=== PATIENT | male | born 2005 | race Caucasian/White ===

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

== ENCOUNTER 2024-08-22 17:58 | Emergency (ER) | payer OTHER, SELFPAY ==
--- NOTE | ~2024-08-22 | XR_ITS ---
CLINICAL HISTORY: fall, pain Four views of the left knee. Findings: There is a 7 mm osteochondral lesion of the medial femoral condyle with a possible unstable fragment. No acute fracture is identified. No definite joint effusion. Impression: No acute fracture. Osteochondral lesion medial femoral condyle with a possible unstable fragment. This document has been electronically signed by: Perry Davis MD on 08/22/2024 19:11:03
[2024-08-22 18:03] VITALS: BP 150/90; PULSE 64; O2SAT 99
[2024-08-22 18:08] VITALS: BP 134/68; PULSE 74; RESP 16; TEMP 36.6; O2SAT 96; BMI 32.8
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
--- NOTE | 2024-08-22 18:34 | ED.LOWEXIN ---
HPI - Extremity Injury (Lower) General Chief Complaint: Extremity Injury, Lower Stated Complaint: FALL, R KNEE INJURY PER EMS Time Seen by Provider: 08/22/24 18:04 Source: patient and EMS Mode of arrival: EMS Limitations: no limitations History of Present Illness ED Provider: Jacklyn Beebe NP HPI Narrative: Patient is a 18-year-old male who presents emergency department for evaluation of right knee pain. He reports that he was walking today when suddenly his right knee gave way resulting in subsequent pain primarily to the posterior aspect of the knee. He does state that about 3-4 weeks ago he was playing basketball and had fallen onto the knee resulting in a sprain, he wore a knee brace for approximately 1 week in his symptoms resolved. He has had an occasional pain here and there since then. He denies any numbness tingling or cold sensation to the extremity. He denies any recent lower extremity redness or swelling. No history of VTE/ malignancy. There was no head strike associated with this fall today Related Data Allergies Allergy/AdvReac Type Severity Reaction Status Date / Time No Known Allergies Allergy Verified 08/22/24 18:08 Review of Systems Review of Systems: Yes all other systems are reviewed and are negative PMFSH Past Medical History Attestation statement: The following information was validated with the patient. Source: old records reviewed Medical History No known health problems Social History Social History Advance Directives: No Advance Directives Information Provided: Yes Do you have a plan to hurt others: No Plan Physical Exam Vital Signs: Vital Signs: Last Vital Signs Temp 97.9 F 08/22/24 18:08 Pulse 74 08/22/24 18:08 Resp 16 08/22/24 18:08 BP 134/68 08/22/24 18:08 Pulse Ox 96 08/22/24 18:08 O2 Del Method Room Air 08/22/24 18:08 BMI result Body Mass Index 32.8 Appearance: Alert.?Oriented to person, place and time. No acute distress.?Normal affect. CVS: Heart sounds normal. Normal heart rate and rhythm.? Pulses normal.?? Respiratory: No respiratory distress.? Lung sounds clear to auscultation bilaterally?? Skin: Skin warm and dry.? Normal skin color.? Extremities: No lower extremity edema.? No calf ttp. 2+ DP/PT pulse. No laxity on examination. No obvious deformity. No effusion. Anterior and posterior drawer test negative. ?Full range of motion to right hip and ankle Neuro: Moves all extremities spontaneously. Sensation intact bilaterally. Ambulates with antalgic gait. Medications Administered Discontinued Medications Generic Name Dose Route Start Last Admin Trade Name Alexis PRN Reason Stop Dose Admin Ibuprofen 600 mg 08/22/24 18:33 08/22/24 18:43 Ibuprofen 600 Mg Tablet PO 08/22/24 18:34 600 mg ONCE ONE Administration Medical Decision Making Medical Decision Making [facility] Narrative: Patient is a 18-year-old male who presents emergency department for evaluation of traumatic right knee pain in the setting of a knee sprain approximately 3-4 weeks ago as per HPI. Overall well-appearing. Nontoxic. Extremities neurovascularly intact distally. No obvious deformity. Differential includes sprain, strain, fracture, dislocation. No clinical evidence or high-risk past medical history that would suggest VTE, Wells score low risk, and again this was traumatic in nature. XR was obtained revealing no evidence of fracture dislocation there is however an osteochondral defect of the medial femoral condyle. I reviewed this with patient. Discussed outpatient follow-up with orthopedics, and reviewed worrisome signs and symptoms that would warrant re-evaluation emergency department. Provided with less of bandage for compression as he has a knee brace at home and did not want an additional one, additionally provided with crutches and educated on usage. All questions answered. Differential Diagnosis Differential Diagnoses: The differential diagnosis associated with the presentation includes (See narrative above) Independent Interpretation I performed an independent interpretation of an: Plain X-Ray (See narrative above) Radiology Impression Discussion of test interpretation with radiology: I have reviewed the radiologist's reading. Radiologist Impression: Four views of the left knee. Findings: There is a 7 mm osteochondral lesion of the medial femoral condyle with a possible unstable fragment. No acute fracture is identified. No definite joint effusion. Impression: No acute fracture. Osteochondral lesion medial femoral condyle with a possible unstable fragment. External Record Review External record reviewed: Outpatient record Prescription Management I considered prescription management with: Pain Medication (Acetaminophen/ibuprofen) Discharge Plan Discharge Clinical Impression: Knee sprain, Osteochondral lesion Patient Disposition: Home, Self-Care Instructions: Knee Sprain (ED), Crutch Instructions (ED), How to Use an Elastic Bandage (ED) Additional Instructions: Be sure to rest over the next few days. Elevate your leg above the level of your chest. Apply ice for 10-15 minutes 4-6 times daily. You can take ibuprofen 200 mg, 3 tablets (600mg) every 6-8 hours as needed for pain, in addition to Tylenol 500 mg, 2 tablets (1,000mg) every 4-6 hours as needed for pain, but not to exceed 3 doses daily (3,000mg).? use elastic bandage for compression in addition to the brace that you have at home and crutches as instructed. As discussed, there is an osteochondral defect on your femoral bone within the knee joint. It is recommended that you follow-up with orthopedics for further evaluation and treatment. contact their office to schedule a follow-up appointment. Referrals: [facility] Orthopedic Surgeons [Provider Group] Print Language: Romansh
[2024-08-22] MEDS: Ibuprofen 600 MG TABLET PO (18:43)
[2024-08-22 20:39] VITALS: BP 112/67; PULSE 65; RESP 20; TEMP 36.6; O2SAT 100
== END 2024-08-22 20:39 | disposition home or self-care (01) ==
PROVIDERS: Emergency Provider Emergency Medicine
DX: S83.91XA Sprain of unspecified site of right knee, initial encounter (principal); M93.861 Other specified osteochondropathies, right lower leg; M25.561 Pain in right knee; X50.1XXA Overexertion from prolonged static or awkward postures, initial encounter; Y93.01 Activity, walking, marching and hiking; Y92.9 Unspecified place or not applicable; Y99.8 Other external cause status
CPT/HCPCS: 73564; 99283; 99284

== ENCOUNTER → 2024-08-22 18:33 | Outpatient (BNV) | payer OTHER, SELFPAY | PROVIDERS: Emergency Provider Emergency Medicine; Visit Provider Radiology Diagnostic Radiology | DX: M25.562 Pain in left knee (principal) | CPT/HCPCS: 73564 ==

== ENCOUNTER 2024-09-14 11:20 | Outpatient (AMB) | payer OTHER, SELFPAY ==
--- NOTE | 2024-09-14 11:25 | A.OFFVIS_ITS ---
Vital Signs 09/14/24 11:37 Height 5 ft 2 in Weight 179 lb BMI 32.7 Intake Visit Reasons: Right knee pain and giving way Intake Note: Frank is a 18 year old male who presents with complaints of progressively worsening right knee pain and giving way. The patient states that he 1st injured his knee while playing basketball several months ago. Since that time his symptoms have gotten worse in spite of continued non operative treatments. He states that his right knee will give out several times per day. He has been limping because of his pain. He has tried Tylenol and anti-inflammatory medicines which gave him minimal relief. He has also tried wearing a knee brace which gives him no relief. The patient states that he has fallen on several occasions because of his right knee instability. Allergies No Known Allergies Allergy (Verified 09/14/24 11:26) Medication List - Last Reconciled 09/14/24 by Jaziel Henry MD dexmethylphenidate ER 25 mg PO QAM [facility] Medical History (Updated 09/14/24 @ 12:03 by Jaziel Henry MD) No known health problems Surgical History (Updated 09/14/24 @ 11:28 by SAURABH Sultana) Hx of neck surgery History of back surgery Social History (Updated 09/14/24 @ 11:27 by SAURABH Sultana) Patient Tobacco Use Status: Never used Tobacco Current occupational status: unemployed Physical Exam Vital Signs: BMI result Body Mass Index 32.7 Const Other: Well-nourished well-developed very friendly male awake alert and oriented x3 in no acute distress Extrem Other: Right knee examination shows a minimal effusion, no crepitus with range of motion, tenderness along his medial joint line, positive Berta's test, no instability Results Reviewed Results Reviewed: X-rays of the patient's right knee show minimal degenerative changes, possible osteochondral defect involving the medial femoral condyle Assessment & Plan Assessment & Plan (1) Tear of medial meniscus of right knee: Code(s): S83.241A - Other tear of medial meniscus, current injury, right knee, initial encounter Category: Medical Plan Frank is a 18-year-old male who presents with right knee pain and mechanical symptoms due to possible medial meniscus tearing as well as possible osteochondral defect of his medial femoral condyle. Thus, I will send the patient for an MRI of his right knee for further evaluation. I will see him back once the MRI is completed to discuss the findings and treatment options. He will continue with his activity modifications in the meantime. I spent 21 minutes in reviewing the patient's records and imaging studies, seeing the patient and documenting in the medical record. Orders: Orders MR knee RT wo con Today S83.241A - Other tear of medial meniscus, current i njury, right knee, initial encounter Coding Level of Care Code New Pt Level 3 (68269) Complex EM visit Add On G2211 Diagnoses Tear of medial meniscus of right knee S83.241A
[2024-09-14 11:37] VITALS: BMI 32.7
--- OUTSIDE RECORDS SUMMARY | 2024-09-14 13:28 | XMS_ITS | Clinical Summary ---
Author Organization [facility] [address] [place] [address] [place] [phone] Phone Care Team Providers Care Reflector Driller And Deburrer Name Role Phone Josephine Wilson MD Primary [...] due to neck injury, ref to [facility] [place] 05/18/18 Neuro[facility]urg [place]: Recommending fusion C1-C2. 06/29/18 s/p fusion 04/25/2020 [place] doing well, follow-up in a year with x-ray neck 6-22 seen for f/u per mom neg xray Last Assessment & Plan: 04/25/2020 [place] doing well, follow-up in a year with [...] (Infanrix) 6wks to less than 7yo ,07/24/2005,07/16/2004,05/10,02/27/2004 [id number]-NMS-ILV (Pentacel) 2mo to less than 5yo 07/24/2005,07/16/2004,05/10/2004,02/23 [...] ADENOIDECTOMY, BILATERAL MYRINGOTOMY AND TUBES 2006 PROCEDURE: [place] TONSILLECTOMY & ADENOIDECTOMY <AGE 12; COMMENT: due to snoring 2006 HERNIA REPAIR 02/19/11 PROCEDURE: REPAIR UMBILICAL HERNIA OTHER SURGICAL HISTORY 06/30/2018 PROCEDURE: [place] ARTHRODESIS PST/PSTLAT TQ 1NTRSPC EA ADDL NTRSPC; [...] due to neck injury, ref to [place]urg [place] 05/18/18 Neuros[facility] [place]: Recommending fusion C1-C2. 06/29/18 s/p fusion 04/25/2020 [place] doing well, follow-up in a year with [...] Most Recently Relevant to Health Maintenance Insurance [facility] Care Teams Reflector Driller And Deburrer Relationship Specialty Start Date End Date Josephine Wilson MD [address] [place] [phone] PCP - General Internal Medicine 02/21/22
== END 2024-09-14 11:59 | disposition home or self-care (01) ==
LOC: HO.HOS 11:20
PROVIDERS: Visit Provider Orthopaedic Surgery
DX: S83.241A Other tear of medial meniscus, current injury, right knee, initial encounter (principal)
CPT/HCPCS: 99203; G2211

== ENCOUNTER → 2024-09-14 11:20 | Outpatient (BNVA) | payer OTHER, SELFPAY | PROVIDERS: Visit Provider Orthopaedic Surgery | DX: M25.561 Pain in right knee (principal); S83.241A Other tear of medial meniscus, current injury, right knee, initial encounter | CPT/HCPCS: 99202 ==

== ENCOUNTER → 2024-10-07 18:17 | Outpatient (BNV) | payer OTHER, SELFPAY | PROVIDERS: Visit Provider Radiology Diagnostic Radiology | DX: S83.411A Sprain of medial collateral ligament of right knee, initial encounter (principal); S83.231A Complex tear of medial meniscus, current injury, right knee, initial encounter; M25.461 Effusion, right knee | CPT/HCPCS: 73721 ==

== ENCOUNTER 2024-10-07 18:18 | Outpatient (REF) | payer OTHER, SELFPAY ==
--- NOTE | ~2024-10-07 | MR_ITS ---
CLINICAL HISTORY: S83.241A - Other tear of medial meniscus, current injury, right knee, in... MR right knee without gadolinium Comparison: CR - XR KNEE RT 4V - 08/22/24 18:40 EDT CR - XR KNEE RT 4V - 08/22/24 18:40 EDT Findings: There is a focal region of osteochondritis dissecans involving the mid weight-bearing aspect of the medial femoral condyle measuring 6 mm transverse by 9 mm anteroposterior by 4 mm craniocaudal. There is moderate ill-defined surrounding STIR signal elevation within the medial femoral condyle. Lateral patellar subluxation with lateral ventral trochlear prominence. Small knee joint effusion. Mild edema within the superolateral aspect of the infrapatellar fat pad. Cruciate and collateral ligaments are intact. Mild T2 signal elevation surrounds the medial collateral ligament. No disruption of the patellar retinacula or iliotibial band. Quadriceps, patellar, popliteus, and flexor tendons are intact. There is amorphous and linear vertical high T2 signal intensity within the peripheral 3rd of the posterior horn medial meniscus, at the meniscal root ligament insertion site, extending to the inferior articular surface, Consistent with complex tearing. Lateral meniscus is intact. IMPRESSION: 1. 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 2. Complex tearing of the medial meniscus. 3. Findings consistent with lateral patellofemoral friction syndrome in the appropriate clinical setting. 4. Small knee joint effusion. 5. Medial collateral ligament strain. This document has been electronically signed by: Nasim Soto MD on 10/10/2024 16:57:00
== END 2024-10-07 18:19 | disposition home or self-care (01) ==
LOC: HO.MRI 18:18
PROVIDERS: Visit Provider Orthopaedic Surgery
DX: S83.241A Other tear of medial meniscus, current injury, right knee, initial encounter (principal)
CPT/HCPCS: 73721

== ENCOUNTER 2024-10-13 10:44 | Outpatient (AMB) | payer OTHER, SELFPAY ==
--- NOTE | 2024-10-13 10:50 | MHC.OFFVIS ---
Intake Visit Reasons: OV-MRI Right knee follow up Intake Note: Frank is a 18 year old male who presents with complaints of progressively worsening right knee pain and giving way. The patient states that he 1st injured his knee while playing basketball several months ago. Since that time his symptoms have gotten worse in spite of continued non operative treatments. He states that his right knee will give out several times per day. He has been limping because of his pain. He has tried Tylenol and anti-inflammatory medicines which gave him minimal relief. He has also tried wearing a knee brace which gives him no relief. The patient states that he has fallen on several occasions because of his right knee instability. Allergies No Known Allergies Allergy (Verified 10/13/24 10:50) Medication List - Last Reconciled 10/13/24 by Jaziel Henry MD dexmethylphenidate ER 25 mg PO QAM [facility] Medical History (Updated 10/13/24 @ 11:35 by Jaziel Henry MD) No known health problems Surgical History (Updated 09/14/24 @ 11:28 by Estephanie Aponte [facility]) Hx of neck surgery History of back surgery Social History Patient Tobacco Use Status: Never used Tobacco Current occupational status: unemployed Physical Exam Const Other: Well-nourished well-developed very friendly male awake alert and oriented x3 in no acute distress Extrem Other: Bilateral lower extremity examination shows good capillary refill, no skin lesions noted, normal sensation light touch Right knee examination shows a minimal effusion, mild crepitus with range of motion, tenderness along his medial joint line, positive Berta's test, no instability Results Reviewed Results Reviewed: MRI of the patient's right knee shows osteochondritis desiccans involving the medial femoral condyle with minimal displacement of the osteochondral fragment, tearing of the medial meniscus Frank is a 18 year old male who presents today for a MRI review of the right knee. Assessment & Plan Assessment & Plan (1) Osteochondritis dissecans, right knee: Code(s): M93.261 - Osteochondritis dissecans, right knee Category: Medical Plan Mr. Castillo presents with right knee pain and mechanical symptoms due to osteochondritis desiccans as well as a medial meniscus tear. Thus, I referred the patient to the [facility] in [place] for further information regarding treatment of the OCD lesion. No one here in [facility] specializes in this type of orthopedic problem. He will follow-up as instructed. Feel free to call me at any time should questions regarding his orthopedic management arise. I spent 21 minutes in reviewing the patient's records and imaging studies, seeing the patient and documenting in the medical record. Coding Level of Care Code Est Pt Level 3 (24789) Complex EM visit Add On G2211 Diagnoses Osteochondritis dissecans, right knee M93.261
--- OUTSIDE RECORDS SUMMARY | 2024-10-13 11:36 | XMS_ITS ---
Author Name [facility] Organization Unknown Care Team Organization Name Specialty Phone Email Start Date End Da te [facility] Josephine Werner Primary Care 11/27/2022 11/09/2023 [facility] Rosetta Primary Care 07/28/2022 11/09/2023 [facility] Samantha Robles Primary Care 01/28/20222023
--- OUTSIDE RECORDS SUMMARY | 2024-10-13 11:36 | XMS_ITS | Clinical Summary ---
Author Organization [facility] [address] [place] [address] [place] [phone] Phone Care Team Providers Care Core Drill Operator Helper Name Role Phone Josephine Wilson MD Primary [...] due to neck injury, ref to Neurosurg [place] 05/18/18 Neurosurg [place]: Recommending fusion C1-C2. 06/29/18 s/p fusion 04/25/2020 [place] doing well, follow-up in a year with x-ray neck 6-22 seen for f/u per mom neg xray Last Assessment & Plan: 04/25/2020 [place] doing well, follow-up in a year with [...] (Infanrix) 6wks to less than 7yo ,07/24/2005,07/16/2004,05/10,02/27/2004 [id number] (Pentacel) 2mo to less than 5yo 07/24/2005,07/16/2004,05/10/2004,02/23 [...] ADENOIDECTOMY, BILATERAL MYRINGOTOMY AND TUBES 2006 PROCEDURE: [place] TONSILLECTOMY & ADENOIDECTOMY <AGE 12; COMMENT: due to snoring 2006 HERNIA REPAIR 02/19/11 PROCEDURE: REPAIR UMBILICAL HERNIA OTHER SURGICAL HISTORY 06/30/2018 PROCEDURE: [place] ARTHRODESIS PST/PSTLAT TQ 1NTRSPC EA ADDL NTRSPC; [...] due to neck injury, ref to Neurosurg [place] 05/18/18 Neurosurg [place]: Recommending fusion C1-C2. 06/29/18 s/p fusion 04/25/2020 [place] doing well, follow-up in a year with [...] 02/19/2023 2:49 PM EST Plan of Treatment Upcoming Encounters Date Type Department Care Team (Late st Contact Info) Description 01/10/2025 3:00 PM EDT Office Visit Adult Medicine [facility] [address] [place] [address] Cielo Lizarraga PA [address] [place], [place] Health Maintenance Due Date Last Done Comments Meningococcal B Vaccine (1 of 2 - Standard) 2019 HIV Screening 02/23/2022 Hepatitis C Screening 02/23/2022 Social Influencers of Health Screening 02/23/2022 COVID-19 Vaccine ( - season) 2023 Annual Well Child Visit (3-21 years old) 02/20/2024 02/19/2023, 09/24/2021, 09/21/2020, Additional history exists Depression Screening 03/23/2024 Influenza Vaccine (#1) 2024 , 12/29/2017, 04/04/2014, Additional history exists Cholesterol Screening (Lipid Panel) 07/07/2025 07/07/2020 DTaP,Tdap,and Td Vaccines (7 - Td or Tdap) 11/18/2025 11/19/2015, 05/04/2008, 07/24/2005, Additional history exists Hepatitis B Vaccines Completed 07/16/2004, 05/10/2004, 02/27/2004, Additional history exists HIB Vaccines Completed 07/24/2005, 06/22, 05/10/2004, Additional history exists Pneumococcal Vaccine: Pediatrics (0 to 5 Years) and At-Risk Patients (6 to 49 Years) Completed 07/24/2005, 07/16/2004, 05/10/2004, Additional history [...] Most Recently Relevant to Health Maintenance Insurance [facility] [employer] [place] [phone] Care Teams Core Drill Operator Helper Relationship Specialty Start Date End Date Josephine Wilson MD [address] [place] [phone] PCP - General Internal Medicine 02/21/22
--- OUTSIDE RECORDS SUMMARY | 2024-10-13 11:36 | XMS_ITS | Clinical Summary ---
Author Organization [facility] Address [address] [place] [phone] Phone Care Team Providers Care Hand Candy Cutter Name Role Phone Dominic Jung MD Unavailable [phone] Dominic Jung MD Primary Care Provider Mikala Napier MD Unavailable [phone] Medications acetaminophen (TylenoL) 325 mg tablet Dose: 325 mg, Dose Amount: 1 tab, PO, Q4hr, PRN Pain: Moderate/Debo re (Score 4-10), Dispense Quantity: 50 tab, Entered: 06/24/18 11:56:07 EDT 06/24/2018 Active cloNIDine (Catapres) 0.1 mg tablet Dose: 0.1 mg, PO, bedtime, Dispense Quantity: 30 tab, Entered: 06/24/18 11:57:38 EDT 06/24/2018 Active dexmethylphenid ate XR (Focalin XR) 20 mg 24 hr capsule Dose: 20 mg, Dose Amount: 1 cap, PO, DailyMorning, Refills: 0, Entered: 06/24/18 11:57:19 EDT 06/24/2018 Active polyethylene glycol 3350 (MIRALAX ORAL) Dose: 17 g, Dose Amount: 1 EA, PO, QPM, Entered: 07/03/18 13:28:53 EDT 07/03/2018 Active Immunizations Immunization Administration Dates Next Due DTaP 05/04/2008, 6,07/16/2004,05/10/2004,1 2003 Hep A, Unspecified 07/24/2006,07/24/2005 Hep B, Unspecified 07/16/2004,05/10/2004, 004,2003 HiB, unspecified 07/24/2005,07/16/2004, 5,02/24/2004 IPV 05/04/2008,07/16/2004,05/10/2004 ,02/27/2004 MMR 05/04/2008,02/06/2005 Novel [id number], nasal 01/25/2009 Pneumococcal Conjugate PCV 7 07/24/2005,07/17/19 05,05/10/2004,02/27/2004 Varicella 05/04/2008,02/06/2005 Social History Tobacco Use Types Packs/Day Years Used Date Smoking Tobacco: Never Assessed Sex and Gender Information Value Date Recorded Sex Assigned at Not on file Legal Sex Male 5:53 PM EDT Gender Identity Not on file Sexual Orientation Not on file Last Filed Vital Signs Vital Sign Reading Time Taken Comments Blood Pressure - - Pulse - - Temperature - - Respiratory Rate - - Oxygen Saturation - - Inhaled Oxygen Concentration - - Weight 51.3 kg (113 lb 1.5 oz) 02/04/2019 4:22 P M EST Height 143 cm (4' 8.3 ) 02/04/2019 4:22 PM EST Body Mass Index 25.09 02/04/2019 4:22 PM EST Plan of Treatment Not on file Care Teams Hand Candy Cutter Relationship Specialty Start Date End Date Dominic Jung MD [address] [place] [phone] PCP - Insurance PCP 04/07/18 Dominic Jung MD [address] [place] [phone] PCP - General 03/31/18 Mikala Napier MD [address] [place] [phone] PCP - Clinical PCP 08/09/12
--- OUTSIDE RECORDS SUMMARY | 2024-10-13 11:36 | XMS_ITS | Encounter Summary ---
Author Organization [facility] Address [address] [place] [address] Care Team Providers Care Senior Marketing Coordinator Name Role Phone Dominic Ortiz MD Primary Care Provider Unava ilable Ryann Rizzo MD Primary Care Provider [phone] Samantha Robles MD Primary Care Provider [phone] Josephine Werner MD Primary Care Prov ider Encounter Details Date Type Department Care Team Description 08/24/2013 [facility] Medical Records [address] [place] [address] Abstract, Provider Social History Tobacco Use Types Packs/Day Years Used Date Smoking Tobacco: Never Smokeless Tobacco: Never Comments:grandma smokes outs isak Alcohol Use Standard Drinks/Week Comments Not Asked 0 (1 standard drink = 0.6 oz pur e alcohol) Sex Assigned at Date Recorded Not on file documented as of this encounter Plan of Treatment Not on file documented as of this encounter Visit Diagnoses Not on filedocumented in this encounter Care Teams Senior Marketing Coordinator Relationship Specialty Start Date End Date Dominic Ortiz MD PCP - General 11/19/10 06/04/21 Ryann Rizzo MD [address] [place] [phone] PCP - General Pediatrics 06/05/21 09/19/21 Samantha Robles MD [address] [place], [place] [phone] PCP - General Pediatrics 09/20/21 02/20/22 Josephine Werner MD [address] [place] [phone] PCP - General Internal Medicine 02/21/22 documented as of this encounter
== END 2024-10-13 11:28 | disposition home or self-care (01) ==
LOC: HO.HOS 10:45
PROVIDERS: Visit Provider Orthopaedic Surgery
DX: M93.261 Osteochondritis dissecans, right knee (principal)
CPT/HCPCS: 99213

== ENCOUNTER → 2024-10-13 10:44 | Outpatient (BNVA) | payer OTHER, SELFPAY | PROVIDERS: Visit Provider Orthopaedic Surgery | DX: M93.261 Osteochondritis dissecans, right knee (principal) | CPT/HCPCS: 99212 ==